=== PATIENT | male | born 1975 | race Caucasian/White ===

== ENCOUNTER 2022-09-09 15:56 | Inpatient (IN) | payer SELFPAY ==
[2022-09-09 18:11] VITALS: BMI 4041.1
[2022-09-09] MEDS ORDERED: Sodium Chloride 0.9% 1,000 ML IV SCH (19:45)
[2022-09-09] MEDS ORDERED: GoLYTELY 4,000 ml Bottle PO SCH (19:45)
[2022-09-09] MEDS ORDERED: Thiamine HCl 200 MG/2 ML VIAL SLOW IVP SCH (20:00)
[2022-09-09] MEDS: Thiamine HCl 200 MG/2 ML VIAL SLOW IVP SCH (21:19)
[2022-09-09] MEDS: Sucralfate 1 GM TAB PO SCH (21:20)
[2022-09-09] MEDS: Pantoprazole 40 MG VIAL IVP SCH (21:20)
[2022-09-09 22:34] LABS: ALT (SGPT) 32 U/L (8-55); AST (SGOT) 18 U/L (5-34); Albumin 3.1 g/dL (3.5-5.0); Alkaline Phosphatase 50 U/L (40-110); Anion Gap 9 mmol/L (10-20); BUN (Urea Nitrogen) 20 mg/dL (8.9-20.6); Bilirubin, Total 0.2 mg/dL (0.2-1.2); Calc. Creatinine Clearance 167 mL/min (70-130); Calcium 7.6 mg/dL (7.8-10.44); Carbon Dioxide 20 mmol/L (22-29); Chloride 112 mmol/L (98-107); Estimated GFR 112; Globulin 1.7 g/dL (2.4-3.5); Glucose 110 mg/dL (70-105); Potassium 3.5 mmol/L (3.5-5.1); Protein, Total 4.8 g/dL (6.0-8.3); Sodium 137 mmol/L (136-145)
[2022-09-09] MEDS: Acetaminophen 325 MG TAB PO PRN (23:03)
[2022-09-10] MEDS ORDERED: traMADol HCl 50 MG TAB PO SCH ×2 (02:45→21:45)
[2022-09-10 05:41] LABS: Hemoglobin 8.6 g/dL (14.0-18.0); Mean Corpuscular HGB CONC 35.2 g/dL (32.0-36.0); Mean Corpuscular Hemoglobin 32.7 pg (27.0-31.0); Mean Corpuscular Volume 92.7 fl (78.0-98.0); Mean Platelet Volume 7.6 fL (7.4-10.4); Platelet Count 210 10x3/uL (130-400); RBC Distribution Width 12.8 % (11.5-14.5); Red Blood Cell (RBC) Count 2.64 mill/uL (4.70-6.10); White Blood Cell (WBC) Count 8.3 10x3/uL (4.8-10.8)
[2022-09-10] MEDS: Sucralfate 1 GM TAB PO SCH ×4 (06:07→20:45)
[2022-09-10] MEDS: Acetaminophen 325 MG TAB PO PRN ×2 (06:08→16:56)
[2022-09-10] MEDS: Folic Acid 1 MG TAB PO SCH (08:08)
[2022-09-10] MEDS: Pantoprazole 40 MG VIAL IVP SCH ×2 (08:12→20:45)
[2022-09-10] MEDS: Lactated Ringer's 1,000 ML IV SCH ×2 (08:52→20:48)
[2022-09-10] MEDS ORDERED: cefTRIAXone\\ROCEPHIN 1 GM in Sodium Chloride 0.9% 100 ML IVPB SCH (09:00)
[2022-09-10 13:26] LABS: Hemoglobin 8.6 g/dL (14.0-18.0); Platelet Count 218 10x3/uL (130-400)
[2022-09-10] MEDS ORDERED: PROPOFOL 200 MG/20 ML VIAL ONE (14:15)
[2022-09-10 18:41] LABS: Hemoglobin 8.1 g/dL (14.0-18.0); Platelet Count 215 10x3/uL (130-400)
[2022-09-10] MEDS: Thiamine HCl 200 MG/2 ML VIAL SLOW IVP SCH (20:47)
[2022-09-11 00:41] LABS: Hemoglobin 7.7 g/dL (14.0-18.0); Platelet Count 192 10x3/uL (130-400)
[2022-09-11 05:45] LABS: #Eosinphils 0.3 thou/uL (0.0-0.7); #Lymphocytes 1.8 thou/uL (1.20-3.40); #Monocytes 0.6 thou/uL (0.11-0.59); #Neutrophils 4.4 thou/uL (1.40-6.50); %Basophils 0.2 % (0.0-1.0); %Eosinophils 4.1 % (0.0-10.0); %Lymphocytes 24.7 % (21.0-51.0); Mean Corpuscular HGB CONC 34.8 g/dL (32.0-36.0); Mean Corpuscular Hemoglobin 32.4 pg (27.0-31.0); Mean Platelet Volume 7.2 fL (7.4-10.4); Platelet Count 234 10x3/uL (130-400); Red Blood Cell (RBC) Count 2.48 mill/uL (4.70-6.10); White Blood Cell (WBC) Count 7.1 10x3/uL (4.8-10.8)
[2022-09-11 06:07] LABS: Anion Gap 10 mmol/L (10-20); BUN (Urea Nitrogen) 9 mg/dL (8.9-20.6); Calc. Creatinine Clearance 151 mL/min (70-130); Calcium 8.3 mg/dL (7.8-10.44); Carbon Dioxide 24 mmol/L (22-29); Chloride 109 mmol/L (98-107); Estimated GFR 109; Glucose 95 mg/dL (70-105); Potassium 3.7 mmol/L (3.5-5.1); Sodium 139 mmol/L (136-145)
[2022-09-11] MEDS: Sucralfate 1 GM TAB PO SCH ×2 (08:42→11:27)
[2022-09-11] MEDS: Pantoprazole 40 MG VIAL IVP SCH (08:43)
[2022-09-11] MEDS: Folic Acid 1 MG TAB PO SCH (08:43)
[2022-09-11] MEDS: Acetaminophen 325 MG TAB PO PRN (09:30)
[2022-09-11 11:22] VITALS: BP 120/83; TEMP 98.6
== END 2022-09-11 11:50 | disposition home or self-care (01) | DRG 378 ==
LOC: 2NO 15:56 → T4-A 21:05
PROVIDERS: ADMIT Family Medicine; ATTEND Family Medicine
PROC: 0DB68ZX Excision of Stomach, Via Natural or Artificial Opening Endoscopic, Diagnostic (ICD-10-PCS; principal; 2022-09-10)
PROC: 0DJD8ZZ Inspection of Lower Intestinal Tract, Via Natural or Artificial Opening Endoscopic (ICD-10-PCS; 2022-09-10)
DX: K26.4 Chronic or unspecified duodenal ulcer with hemorrhage (principal); D62 Acute posthemorrhagic anemia; E87.29 Other acidosis; J45.909 Unspecified asthma, uncomplicated; F10.10 Alcohol abuse, uncomplicated; F17.210 Nicotine dependence, cigarettes, uncomplicated; T39.395A Adverse effect of other nonsteroidal anti-inflammatory drugs [NSAID], initial encounter; Z85.820 Personal history of malignant melanoma of skin; Z87.11 Personal history of peptic ulcer disease; Z79.1 Long term (current) use of non-steroidal anti-inflammatories (NSAID); Z80.0 Family history of malignant neoplasm of digestive organs
CPT/HCPCS: 36415; 80048; 85025; 85027; 86850; 86900; 86901; 88305; C9113; J0696; J2704; J3411; J3490; J7050; J7120